=== PATIENT | female | born 1935 | race Caucasian/White ===

== ENCOUNTER 2019-03-14 11:01 | Outpatient (CLI) | payer MEDICARE, SELFPAY ==
[2019-03-14 11:30] VITALS: BP 139/88; PULSE 109; RESP 18; O2SAT 96
== END 2019-03-14 11:55 | disposition home or self-care (01) ==
LOC: INF 11:06
PROVIDERS: PCP Family Medicine; Visit Provider Family Medicine
DX: M81.0 Age-related osteoporosis without current pathological fracture (principal)
CPT/HCPCS: 96372; J0897

== ENCOUNTER 2020-03-16 13:25 | Outpatient (CLI) | payer MEDICARE, SELFPAY ==
[2020-03-16 13:45] VITALS: BP 122/75; PULSE 105; RESP 18; TEMP 36.7
== END 2020-03-16 14:00 | disposition home or self-care (01) ==
LOC: INF 13:34
PROVIDERS: Visit Provider Family Medicine
DX: M81.0 Age-related osteoporosis without current pathological fracture (principal)
CPT/HCPCS: 96372; J0897

== ENCOUNTER 2020-11-19 10:41 | Outpatient (CLI) | payer MEDICARE, SELFPAY ==
[2020-11-19 10:58] VITALS: BP 137/69; PULSE 103; RESP 18; TEMP 36.6; O2SAT 97
== END 2020-11-19 11:20 | disposition home or self-care (01) ==
LOC: INF 10:44
PROVIDERS: PCP Family Medicine; Visit Provider Family Medicine
DX: M81.0 Age-related osteoporosis without current pathological fracture (principal)
CPT/HCPCS: 96372; J0897